=== PATIENT | male | born 1995 | race African-American/Black ===

== ENCOUNTER 2022-02-16 11:46 | Emergency (ER) | payer OTHER ==
[2022-02-16 12:09] VITALS: BP 128/72; PULSE 84; RESP 18; TEMP 97.9; BMI 32.5
[2022-02-16] MEDS ORDERED: IBUPROFEN 600 MG TABLET (FP) PO ONE ×2 (13:01)
== END 2022-02-16 14:09 | disposition home or self-care (01) ==
LOC: JERFT 11:46
DX: M79.662 Pain in left lower leg (principal)
CPT/HCPCS: 73610-TC-LT-FY; 73630-TC-LT; 99284-25

== ENCOUNTER 2022-02-24 11:39 | Day surgery (SDC) | payer OTHER ==
[2022-02-20 14:30] VITALS: BMI 32.5
[2022-02-24] MEDS ORDERED: MIDAZOLAM HCL 2 MG/2 ML SINGLE DOSE VIAL ONE ×2 (13:33→13:47)
[2022-02-24] MEDS ORDERED: PROPOFOL 60 ML ONE (14:04)
[2022-02-24] MEDS ORDERED: SODIUM CHLORIDE 0.9% P/F 10 ML VIAL IJ ONE (14:18)
[2022-02-24] MEDS ORDERED: KETOROLAC TROMETHAMINE 30 MG/1 ML VIAL ONE (14:18)
[2022-02-24] MEDS ORDERED: ceFAZolin SODIUM 1 GM VIAL ONE (14:18)
[2022-02-24] MEDS ORDERED: ONDANSETRON 4 MG/2 ML VIAL ONE (14:18)
[2022-02-24] MEDS ORDERED: PHENYLEPHRINE HCL 10 MG/1 ML SINGLE DOSE VIAL ONE (14:18)
[2022-02-24] MEDS ORDERED: DEXAMETHASONE SOD PHOSPHATE 4 MG/1 ML VIAL ONE (14:18)
[2022-02-24] MEDS ORDERED: ePHEDrine SULFATE 50 MG/1 ML AMPULE ONE (14:20)
[2022-02-24] MEDS ORDERED: oxyCODONE HCL 5 MG TABLET PO PRN (15:21)
[2022-02-24] MEDS ORDERED: ONDANSETRON 4 MG/2 ML VIAL IVPUSH PRN (15:21)
[2022-02-24] MEDS ORDERED: LACTATED RINGERS SOLUTION 1,000 ML IV SCH (15:30)
[2022-02-24 16:02] VITALS: RESP 16
[2022-02-24 17:05] VITALS: BP 122/71; PULSE 81; TEMP 97.3
== END 2022-02-24 18:25 | disposition home or self-care (01) ==
LOC: FASU 11:39
PROVIDERS: ATTEND Orthopaedic Surgery Sports Medicine
PROC: 0LQP0ZZ Repair Left Lower Leg Tendon, Open Approach (ICD-10-PCS; principal; 2022-02-24 14:09)
DX: S86.012A Strain of left Achilles tendon, initial encounter (principal); X58.XXXA Exposure to other specified factors, initial encounter; Y93.9 Activity, unspecified; Y92.9 Unspecified place or not applicable
CPT/HCPCS: 94760; C1713

== ENCOUNTER 2022-08-10 20:32 | Emergency (ER) | payer BC, OTHER ==
[2022-08-10 20:40] VITALS: RESP 18; BMI 33.9
[2022-08-10] MEDS ORDERED: ACETAMINOPHEN 1000 MG/100 ML BAG IVPB ONE (22:14)
[2022-08-10] MEDS ORDERED: ACETAMINOPHEN INJECTION 100 ML IVPB ONE (22:21)
[2022-08-10 22:30] LABS: BASO % 0.4 % (0-2.0); EOS % 0.2 % (0-4.5); HEMATOCRIT 45.2 % (35.4-49); HEMOGLOBIN 15.4 GM/dL (11.7-16.9); LYMPH % 10.1 % (8-40); MCH 29.2 pg (25.7-33.7); MCHC 34.1 g/dl (32.0-35.9); MEAN CELL VOLUME 85.6 fl (80-96); MEAN PLT VOLUME 8.6 fl (7.5-11.1); MONO % 8.2 % (3.8-10.2); NEUT % 81.1 % (42.8-82.8); PLATELET COUNT 201 10^3/uL (134-434); RBC 5.28 M/mm3 (4.00-5.60); RDW 12.6 % (11.9-15.9); WHITE BLOOD COUNT 12.4 K/mm3 (4.0-10.0)
[2022-08-10 22:49] LABS: CALCIUM 9.1 mg/dL (8.5-10.1)
[2022-08-10 22:50] LABS: ALBUMIN 3.7 g/dl (3.4-5.0); BLOOD UREA NITROGEN 10.2 mg/dL (7-18)
[2022-08-10 22:53] LABS: CREATININE 1.2 mg/dL (0.55-1.3)
[2022-08-10 22:54] LABS: BILIRUBIN,TOTAL 1.1 mg/dL (0.2-1)
[2022-08-11] MEDS ORDERED: LIDOCAINE 2.5%/PRILOCAINE 2.5% (5 Gram/TUBE) TP ONE (00:50)
[2022-08-11] MEDS ORDERED: LIDOCAINE HCL 2% (20ML MULTI-DOSE VIAL) ONE (00:59)
[2022-08-11 01:17] VITALS: BP 145/103; PULSE 103; TEMP 98.6
[2022-08-11] MEDS ORDERED: CLINDAMYCIN HCL 150 MG CAPSULE (FP) ONE ×2 (01:32)
[2022-08-11] MEDS ORDERED: CLINDAMYCIN HCL 150 MG CAPSULE (FP) PO ONE (01:32)
== END 2022-08-11 02:10 | disposition home or self-care (01) ==
LOC: JERFT 20:32 → JER 20:32
PROC: 3E0333Z Introduction of Anti-inflammatory into Peripheral Vein, Percutaneous Approach (ICD-10-PCS; principal; 2022-08-10)
PROC: 0H98XZZ Drainage of Buttock Skin, External Approach (ICD-10-PCS; 2022-08-10)
DX: K61.0 Anal abscess (principal)
CPT/HCPCS: 36415; 72193-TC; 80053; 85025; 99285-25; Q9967